=== PATIENT | female | born 1965 | race Caucasian/White ===

== ENCOUNTER 2022-06-13 20:27 | Inpatient (IN) ==
[2022-06-13] MEDS ORDERED: Ondansetron 4 MG/2 ML VIAL IVP ONE (23:07)
[2022-06-13] MEDS ORDERED: 0.9 % Sodium Chloride 1,000 ML ONE (23:36)
[2022-06-13 23:45] LABS: Basophils % 0.5 %; Eosinophils # 0.1 K/mcL (0.0-0.6); Eosinophils % 1.6 %; Hematocrit 23.8 % (35.3-44.9); Hemoglobin 7.3 g/dL (11.5-15.4); Immature Granulocytes % 0.3 % (0-4); Lymphocytes # 2.3 K/mcL (0.6-4.6); Mean Corpuscular HGB Conc 30.7 g/dL (31.6-35.5); Mean Corpuscular Hemoglobin 26.8 pg (28.0-33.3); Mean Corpuscular Volume 87.5 fL (83.0-100.0); Mean Platelet Volume 10.6 fL (9.4-12.4); Monocytes # 0.6 K/mcL (0.0-1.3); Monocytes % 8.2 %; Neutrophils # 4.6 K/mcL (1.6-8.9); Platelet Count 178 K/mcL (140-400); Red Blood Count 2.72 M/mcL (3.82-4.97); Red Cell Distribution Width 17.2 % (11.5-14.5); Segmented Neutrophils % 59.4 %; White Blood Count 7.7 K/mcL (4.3-11.1)
[2022-06-13 23:52] LABS: INR 1.3; Prothrombin Time 14.5 Seconds (9.4-12.1)
[2022-06-13 23:55] LABS: Activated Partial Thrombo Time 35.3 Seconds (26.0-36.0)
[2022-06-13 23:58] LABS: Platelet Estimate Normal (Normal); Reactive Lymphocytes Present (Not Present)
[2022-06-13 23:59] LABS: Anisocytosis 1+ (Not Present); Hypochromasia Present (Not Present)
[2022-06-14 00:07] LABS: Alanine Aminotransferase 5 Units/L (7-52); Albumin 3.2 g/dL (3.5-5.7); Albumin/Globulin Ratio 0.8 (1.1-2.2); Alkaline Phosphatase 93 Units/L (34-104); Aspartate Amino Transferase 28 Units/L (13-39); BUN/Creatinine Ratio 27 (6-26); Bilirubin,Direct 0.1 mg/dL (0.0-0.2); Bilirubin,Indirect 0.3 mg/dL (0.0-1.0); Bilirubin,Total 0.4 mg/dL (0.3-1.0); Blood Urea Nitrogen 14 mg/dL (6-20); Calcium 8.1 mg/dL (8.6-10.3); Carbon Dioxide 23 mEq/L (23-29); Chloride 105 mEq/L (98-107); Globulin 3.9 g/dL (2.4-3.5); Glucose 98 mg/dL (70-105); Lipase 12 Units/L (11-82); Osmolality,Calculated 280 (280-300); Potassium 3.3 mEq/L (3.5-5.1); Sodium 135 mEq/L (136-145); Total Protein 7.1 g/dL (6.4-8.9); Troponin I < 0.03 ng/mL (< 0.04)
[2022-06-14] MEDS ORDERED: Pantoprazole 40 MG VIAL IVP ONE (00:27)
[2022-06-14] MEDS ORDERED: Iopamidol - 370 500 ML MLS IVP ONE (00:29)
[2022-06-14] MEDS ORDERED: 0.9 % Sodium Chloride 250 ML ONE ×2 (00:38→06:51)
[2022-06-14] MEDS ORDERED: Ondansetron 4 MG/2 ML VIAL IVP PRN (04:00)
[2022-06-14] MEDS ORDERED: Naloxone 0.4 MG/ML INJ IVP PRN (04:00)
[2022-06-14] MEDS ORDERED: Octreotide 50 MCG/ML INJ IVP ONE (04:05)
[2022-06-14 05:15] LABS: Acetaminophen < 10 mcg/mL (10-20)
[2022-06-14] MEDS: 0.9 % Sodium Chloride 1,000 ML IVC SCH ×2 (05:39→15:44)
[2022-06-14] MEDS: Octreotide 400 MCG in 0.9 % Sodium Chloride 100 ML IVC SCH ×3 (05:39→23:59)
[2022-06-14] MEDS: cefTRIAXone 1,000 MG in 0.9 % Sodium Chloride Mini Bag 100 ML IVPB SCH (05:40)
[2022-06-14] MEDS: Pantoprazole 40 MG VIAL IVP SCH ×2 (05:40→18:25)
[2022-06-14 05:49] LABS: Hematocrit 25.9 % (35.3-44.9); Hemoglobin 8.1 g/dL (11.5-15.4); Mean Corpuscular HGB Conc 31.3 g/dL (31.6-35.5); Mean Corpuscular Hemoglobin 27.6 pg (28.0-33.3); Mean Corpuscular Volume 88.1 fL (83.0-100.0); Mean Platelet Volume 10.8 fL (9.4-12.4); Platelet Count 154 K/mcL (140-400); Red Blood Count 2.94 M/mcL (3.82-4.97); Red Cell Distribution Width 16.4 % (11.5-14.5); White Blood Count 7.1 K/mcL (4.3-11.1)
[2022-06-14 06:11] LABS: BUN/Creatinine Ratio 25 (6-26); Blood Urea Nitrogen 13 mg/dL (6-20); Calcium 7.8 mg/dL (8.6-10.3); Carbon Dioxide 22 mEq/L (23-29); Chloride 110 mEq/L (98-107); Glucose 96 mg/dL (70-105); Osmolality,Calculated 282 (280-300); Potassium 3.7 mEq/L (3.5-5.1); Sodium 136 mEq/L (136-145)
[2022-06-14 08:18] LABS: Hepatitis C Virus Antibody Nonreactive (Nonreactive)
[2022-06-14 08:19] LABS: Hepatitis B Core IgM Nonreactive (Nonreactive)
[2022-06-14 08:21] LABS: Hepatitis A Antibody IgM Nonreactive (Nonreactive)
[2022-06-14 15:13] LABS: Hepatitis B Surface Antigen Nonreactive (Nonreactive)
[2022-06-15] MEDS: cefTRIAXone 1,000 MG in 0.9 % Sodium Chloride Mini Bag 100 ML IVPB SCH (05:01)
[2022-06-15] MEDS: 0.9 % Sodium Chloride 1,000 ML IVC SCH ×2 (05:10→10:13)
[2022-06-15] MEDS: Pantoprazole 40 MG VIAL IVP SCH ×2 (05:58→16:58)
[2022-06-15 08:25] LABS: Hematocrit 29.7 % (35.3-44.9); Hemoglobin 9.4 g/dL (11.5-15.4)
[2022-06-15] MEDS: Octreotide 400 MCG in 0.9 % Sodium Chloride 100 ML IVC SCH ×3 (10:13→18:24)
[2022-06-15 12:20] LABS: Iron 26 mcg/dL (50-170)
[2022-06-15 12:38] LABS: Ferritin 132 ng/mL (10-120)
[2022-06-15 12:39] LABS: % Iron Saturation 8 % (15-50); Transferrin 243 mg/dL (203-362)
[2022-06-16] MEDS: Octreotide 400 MCG in 0.9 % Sodium Chloride 100 ML IVC SCH ×3 (03:06→22:34)
[2022-06-16] MEDS: 0.9 % Sodium Chloride 1,000 ML IVC SCH ×4 (03:09→23:30)
[2022-06-16 04:24] LABS: Basophils % 0.6 %; Eosinophils # 0.1 K/mcL (0.0-0.6); Eosinophils % 1.9 %; Hematocrit 27.9 % (35.3-44.9); Immature Granulocytes % 0.2 % (0-4); Lymphocytes # 1.5 K/mcL (0.6-4.6); Lymphocytes % 30.9 %; Mean Corpuscular HGB Conc 32.3 g/dL (31.6-35.5); Mean Corpuscular Volume 86.6 fL (83.0-100.0); Monocytes # 0.4 K/mcL (0.0-1.3); Monocytes % 8.5 %; Neutrophils # 2.8 K/mcL (1.6-8.9); Platelet Count 146 K/mcL (140-400); Red Blood Count 3.22 M/mcL (3.82-4.97); Red Cell Distribution Width 15.7 % (11.5-14.5); Segmented Neutrophils % 57.9 %; White Blood Count 4.9 K/mcL (4.3-11.1)
[2022-06-16 04:45] LABS: Alanine Aminotransferase 5 Units/L (7-52); Albumin/Globulin Ratio 0.9 (1.1-2.2); Alkaline Phosphatase 83 Units/L (34-104); Aspartate Amino Transferase 33 Units/L (13-39); BUN/Creatinine Ratio 11 (6-26); Bilirubin,Total 0.7 mg/dL (0.3-1.0); Blood Urea Nitrogen 6 mg/dL (6-20); Calcium 7.9 mg/dL (8.6-10.3); Carbon Dioxide 22 mEq/L (23-29); Chloride 108 mEq/L (98-107); Globulin 3.3 g/dL (2.4-3.5); Glucose 103 mg/dL (70-105); Osmolality,Calculated 280 (280-300); Potassium 3.7 mEq/L (3.5-5.1); Sodium 136 mEq/L (136-145); Total Protein 6.3 g/dL (6.4-8.9)
[2022-06-16] MEDS: Pantoprazole 40 MG VIAL IVP SCH ×2 (05:42→17:32)
[2022-06-16] MEDS: cefTRIAXone 1,000 MG in 0.9 % Sodium Chloride Mini Bag 100 ML IVPB SCH (05:42)
[2022-06-16] MEDS ORDERED: Lidocaine -MPF 2% 5 ML VIAL ONE (12:45)
[2022-06-16] MEDS ORDERED: *HR* Propofol 200 MG/20 ML VIAL IVP ONE (12:45)
[2022-06-16] MEDS ORDERED: *HR* Succinylcholine 200 MG/10 ML VIAL IVP ONE (13:01)
[2022-06-16] MEDS ORDERED: *HR* OxyCODONE Immed Rel 5 MG TABLET PO PRN (14:56)
[2022-06-16] MEDS ORDERED: Naloxone 0.4 MG/ML INJ IVP PRN (14:56)
[2022-06-16] MEDS ORDERED: Acetaminophen 325 MG TABLET PO PRN (14:56)
[2022-06-17] MEDS: cefTRIAXone 1,000 MG in 0.9 % Sodium Chloride Mini Bag 100 ML IVPB SCH (05:15)
[2022-06-17] MEDS: Pantoprazole 40 MG VIAL IVP SCH ×2 (05:16→16:58)
[2022-06-17] MEDS: Octreotide 400 MCG in 0.9 % Sodium Chloride 100 ML IVC SCH ×3 (07:11→23:51)
[2022-06-17] MEDS: 0.9 % Sodium Chloride 1,000 ML IVC SCH ×2 (10:32→21:19)
[2022-06-18] MEDS: cefTRIAXone 1,000 MG in 0.9 % Sodium Chloride Mini Bag 100 ML IVPB SCH (05:42)
[2022-06-18] MEDS: Pantoprazole 40 MG VIAL IVP SCH ×2 (05:43→17:39)
[2022-06-18] MEDS: Octreotide 400 MCG in 0.9 % Sodium Chloride 100 ML IVC SCH ×2 (07:58→16:16)
[2022-06-18] MEDS: 0.9 % Sodium Chloride 1,000 ML IVC SCH ×2 (10:05→20:06)
[2022-06-18 12:13] LABS: ANA IgG by ELISA NONE DETECTED (None Detected)
[2022-06-19] MEDS: Octreotide 400 MCG in 0.9 % Sodium Chloride 100 ML IVC SCH (00:19)
[2022-06-19] MEDS: Pantoprazole 40 MG VIAL IVP SCH (04:47)
[2022-06-19] MEDS: cefTRIAXone 1,000 MG in 0.9 % Sodium Chloride Mini Bag 100 ML IVPB SCH (04:48)
[2022-06-19 07:22] VITALS: BP 135/84; PULSE 76; TEMP 98.5; O2SAT 96
[2022-06-19 10:58] LABS: Smooth Muscle Ab Titer IgG 1:20 (<1:20)
== END 2022-06-19 10:31 | disposition home or self-care (01) | DRG 369 ==
LOC: EMEROOARM 20:27 → 3BNU 20:27 → SUATTDRO 06-14 12:01 → 3BNU 06-14 14:50 → SUATTDRO 06-16 16:49
PROVIDERS: ADMIT Student in an Organized Health Care Education/Training Program; ATTEND Internal Medicine